=== PATIENT | male | born 1975 | race Two or more races ===

== ENCOUNTER 2020-09-15 17:18 | Inpatient (IN) | payer SELFPAY ==
--- NOTE | ~2020-09-15 | CT_ITS ---
EXAMINATION: CT ABDOMEN AND PELVIS WITH CONTRAST CLINICAL INFORMATION: Left lower quadrant pain COMPARISON: 05/21/2016 TECHNIQUE: Multidetector volumetric images were obtained from the superior aspect of the liver through the pubic symphysis following administration 85 mL of Omnipaque 350 intravenous contrast. Sagittal and coronal reformatted images were obtained on the technologist's workstation. Oral contrast: No This CT examination was performed using dose optimization techniques as appropriate, variously including the following: *Automated exposure control *Adjustment of mA and/or kV according to patient size (this includes techniques or standardized protocols for targeted exams where dose is matched to indication/reason for exam; i.e. extremities or head) *Use of iterative reconstruction technique DLP: 426 mGy-cm FINDINGS: LUNG BASES: The visualized lung bases are unremarkable. LIVER, GALLBLADDER, AND BILIARY TREE: The liver is normal in size, shape, and attenuation. No suspicious focal hepatic lesion or biliary ductal dilatation is present. Small cyst junctional left and right lobe similar subcentimeter in size. The gallbladder is unremarkable with no evidence of radiopaque gallstones, gallbladder wall thickening, or obvious pericholecystic inflammatory changes. PANCREAS: Unremarkable. SPLEEN: Unremarkable. ADRENAL GLANDS: Unremarkable. KIDNEYS AND URETERS: Right kidney unremarkable. Left kidney notable for a segmental area of nonenhancement lower pole favoring an infarct. No hydronephrosis. BLADDER: Unremarkable. GASTROINTESTINAL TRACT: The small and large bowel are grossly normal. The distal colon is collapsed. Element of mild colitis question. Fatty halo sign noted. No small bowel pathology. No fluid collection. The appendix is unremarkable. ABDOMINAL WALL: No significant hernia is appreciated. LYMPH NODES: Normal. VASCULAR: Unremarkable. PELVIC VISCERA: Prostate gland is enlarged and heterogeneous. Correlate with digital rectal exam. OSSEOUS STRUCTURES: Unremarkable. CT/CT abdomen pelvis w con IMPRESSION: 1. Left renal cortical findings suspicious for a renal infarct. 2. Collapsed distal colon limiting assessment. Correlate clinically concerning possibility of minor colitis.
--- NOTE | ~2020-09-15 | US_ITS ---
EXAMINATION: US RETROPERITONEAL LIMITED (RENAL ONLY) ULTRASOUND RENAL DOPPLER CLINICAL INFORMATION: Renal infarction. COMPARISON: None TECHNIQUE: Routine mcgill-scale imaging of kidneys was performed in addition retroperitoneal Doppler of kidneys and abdominal aorta was obtained. FINDINGS: The exam is limited secondary to overlying bowel gas. RIGHT KIDNEY: 11.1 x 4.3 x 5.2 cm (SAG x AP x TRV). The kidney is normal in size, contour, and echogenicity. Renal cortical thickness is normal. No calculi or focal parenchymal lesions. No hydronephrosis. LEFT KIDNEY: 11.9 x 4.7 x 4.7 cm (SAG x AP x TRV). The kidney is normal in size, contour, and echogenicity. Renal cortical thickness is normal. No calculi or focal parenchymal lesions. No hydronephrosis. DOPPLER IMAGING: Right Kidney: The proximal renal artery velocity measures 113 cm/second, mid segment measuring 137 cm/second and distal segment measures 114 cm/second. Average resistive index is 0.72. The renal aortic ratio cannot be calculated due to elevated aortic velocity of 104 cm/second. Left Kidney: The proximal renal artery velocity measures 96.7 cm/second, mid segment measures 82.2 cm/second, distal segment measures 91.8 cm/second. The renal aortic ratio cannot be calculated. The average resistive index is 0.71. The renal veins are patent bilaterally. US/US renal doppler IMPRESSION: Normal renal ultrasound. On renal Doppler exam the velocities and resistive indexes are normal in both kidneys. There is no suggestion for renal artery stenosis.
--- NOTE | ~2020-09-15 | US_ITS ---
EXAMINATION: US RETROPERITONEAL LIMITED (RENAL ONLY) ULTRASOUND RENAL DOPPLER CLINICAL INFORMATION: Renal infarction. COMPARISON: None TECHNIQUE: Routine mcgill-scale imaging of kidneys was performed in addition retroperitoneal Doppler of kidneys and abdominal aorta was obtained. FINDINGS: The exam is limited secondary to overlying bowel gas. RIGHT KIDNEY: 11.1 x 4.3 x 5.2 cm (SAG x AP x TRV). The kidney is normal in size, contour, and echogenicity. Renal cortical thickness is normal. No calculi or focal parenchymal lesions. No hydronephrosis. LEFT KIDNEY: 11.9 x 4.7 x 4.7 cm (SAG x AP x TRV). The kidney is normal in size, contour, and echogenicity. Renal cortical thickness is normal. No calculi or focal parenchymal lesions. No hydronephrosis. DOPPLER IMAGING: Right Kidney: The proximal renal artery velocity measures 113 cm/second, mid segment measuring 137 cm/second and distal segment measures 114 cm/second. Average resistive index is 0.72. The renal aortic ratio cannot be calculated due to elevated aortic velocity of 104 cm/second. Left Kidney: The proximal renal artery velocity measures 96.7 cm/second, mid segment measures 82.2 cm/second, distal segment measures 91.8 cm/second. The renal aortic ratio cannot be calculated. The average resistive index is 0.71. The renal veins are patent bilaterally. US/US renal BI IMPRESSION: Normal renal ultrasound. On renal Doppler exam the velocities and resistive indexes are normal in both kidneys. There is no suggestion for renal artery stenosis.
[2020-09-15 17:59] VITALS: BP 132/75; PULSE 55; RESP 19; TEMP 37.1; O2SAT 98; BMI 23.3
--- NOTE | 2020-09-15 18:42 | ED_ITS ---
HPI - Abdominal Pain General Chief Complaint: Abdominal Pain Stated Complaint: abdominal pain Time Seen by Provider: 09/15/20 18:28 Source: patient Mode of arrival: ambulatory Limitations: no limitations History of Present Illness HPI narrative: Patient comes emergency room complaining of left lower quadrant pain. Patient states started around 23:00 last night. Patient states that he has had this pain once before but it self resolved. Patient was hoping that the pain would resolve and was awaiting coming to the hospital. However, over last few hours the pain has gradually been getting much worse. Denies nausea vomiting or diarrhea. States that he has no appetite. Denies fever or chills. Patient denies dysuria or hematuria, no history kidney stones or abdominal pathology Related Data Allergies Allergy/AdvReac Type Severity Reaction Status Date / Time No Known Allergies Allergy Verified 09/15/20 17:59 Review of Systems Review of Systems Constitutional : No Weight loss, No Fever, No Chills, No Night Sweats, No Fatigue, No Malaise ENT/Mouth : No Hearing loss, No Ear Pain, No Nasal Congestion, No Sinus Pain, No Hoarseness, No sore throat, No Rhinorrhea, No Swallowing Difficulty Eyes: No Eye Pain, No Swelling, No Redness, No Foreign Body, No Discharge, No Vision Changes Cardiovascular : No Chest Pain, No SOB, No Dyspnea on Exertion, No Orthopnea, No Edema, No Palpitations Respiratory : No Cough, No Sputum, No Wheezing, No Smoke Exposure, No Dyspnea Gastrointestinal : No Nausea, No Vomiting, No Diarrhea, No Constipation, complaining of periumbilical and left lower quadrant pain, no flank pain, No Hematochezia, No Melena Genitourinary : no irregular bleeding, No Dysuria, No Urinary Frequency, No Hematuria, No Urinary Incontinence, No Urgency, No Flank Pain, No Urinary Flow Changes, No Hesitancy Musculoskeletal : No joint pain, No Myalgias, No Joint Swelling Skin : No Skin Lesions, No rash Neuro : No Weakness, No Numbness, No Paresthesias, No Loss of Consciousness, No Dizziness, No Headache Psych : No Anxiety/Panic, No Depression, No SI/HI/AH/VH, No Social Issues, Heme/Lymph: No Bruising, No Bleeding,No Lymphadenopathy Endocrine : No Polyuria, No Polydipsia, No Temperature Intolerance Physical Exam Vital Signs: Vital Signs: Last Vital Signs Temp 98.5 F 07/20/21 21:04 Pulse 59 09/15/20 21:04 Resp 18 09/15/20 21:04 BP 113/61 09/15/20 21:04 Pulse Ox 97 09/15/20 21:04 Body Mass Index 23.3 Appearance: Alert. Oriented X3. No acute distress but does look uncomforta ble Eyes: Pupils equal, round and reactive to light. ENT: Pharynx normal. Neck: Normal inspection. Neck supple. No lymph nodes noted. No crepitus CVS: Normal heart rate and rhythm. Pulses normal. Normal S1 and S2 Respiratory: No respiratory distress. Breath sounds normal. No Wheezing. No rales Abdomen: Soft, tender to palpation over the left lower quadrant and periumbilical area , No rigidity. No distention. No rebound, no guarding. Skin: Skin warm and dry. Normal skin color. Normal skin turgor. Extremities: No lower extremity edema. No lower extremity edema. No Lacerations. No Rash Neuro: Oriented X 3. No motor deficit. No sensory deficit. Moving all extermities. No slurred speech. 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 Patient does not have history of atrial fibrillation, coagulopathy. I discussed the above-mentioned with the patient, patient willing to stay for further workup. I also discussed this with our hospitalist Dr. Ricketts, patient being admitted. Urinalysis pending MDM - Abdominal Pain Lab Data Result diagrams: 09/15/20 19:06 09/15/20 19:06 Labs: Lab Results 09/15/20 09/15/20 09/15/20 Range/Units 19:06 19:06 19:06 WBC 15.8 H (4.8-10.8) X10*3/uL RBC 4.72 (4.60-5.80) X10*6/uL Hgb 15.6 (14.0-18.0) g/dl Hct 43.1 (42-52) % MCV 91.3 (80-98) fL MCH 33.1 H (27.0-33.0) pg MCHC 36.2 H (31.0-36.0) g/dl RDW 11.4 (11.0-16.0) % Plt Count 216 (160-400) X10*3/uL MPV 11.1 (9.4-12.4) fL Immature Gran % (Auto) 0.4 (0.0-0.4) % Neut % (Auto) 84.3 H (45-73) % Lymph % (Auto) 10.3 L (20-40) % [place] % (Auto) 4.4 (2-11) % Eos % (Auto) 0.4 (0-4) % Baso % (Auto) 0.2 (0-2) % Lymph # (Auto) 1.6 (1.2-4.9) X10*3/uL [place] # (Auto) 0.7 (0.1-1.2) X10*3/uL Eos # (Auto) 0.1 (0.0-0.4) X10*3/uL Baso # (Auto) 0.0 (0.0-0.2) X10*3/uL Abs Immat Gran (auto) 0.07 H (0.00-0.03) X10*3/uL Absolute Neuts (auto) 13.3 H (2.0-8.3) X10*3/uL Absolute Nucleated RBC 0.000 (0.0-0.012) X10*3/uL Nucleated RBC % (auto) 0.0 (0.0-0.2) /100WBC Sodium 143 142 (135-145) mmol/L Potassium 3.9 3.9 (3.3-5.1) mmol/L Chloride 107 107 (96-108) mmol/L Carbon Dioxide 28 28 (22-29) mmol/L Anion Gap 12 11 L (12-20) BUN 7 L 7 L (9-16) mg/dL Creatinine 0.97 0.94 (0.5-1.4) mg/dL Estim Creat Clear Calc 98.1 101.3 Estimated GFR > 60 > 60 Random Glucose 96 97 (60-115) mg/dL Calcium 9.7 9.5 (8.4-10.2) mg/dL Total Bilirubin 1.9 H 1.9 H (0.0-1.0) mg/dL Direct Bilirubin 0.6 H (0.0-0.5) mg/dL AST 20 21 (5-37) U/L ALT 29 27 (0-40) U/L Alkaline Phosphatase 77 75 (39-117) U/L Total Protein 7.6 7.5 (6.5-8.0) g/dL Albumin 4.4 4.4 (3.5-5.0) g/dL Lipase 8 (8-78) U/L Imaging Data CT scan - abdomen: Radiologist's impression: FINDINGS: LUNG BASES: The visualized lung bases are unremarkable. LIVER, GALLBLADDER, AND BILIARY TREE: The liver is normal in size, shape, and attenuation. No suspicious focal hepatic lesion or biliary ductal dilatation is present. Small cyst junctional left and right lobe similar subcentimeter in size. The gallbladder is unremarkable with no evidence of radiopaque gallstones, gallbladder wall thickening, or obvious pericholecystic inflammatory changes. PANCREAS: Unremarkable. SPLEEN: Unremarkable. ADRENAL GLANDS: Unremarkable. KIDNEYS AND URETERS: Right kidney unremarkable. Left kidney notable for a segmental area of nonenhancement lower pole favoring an infarct. No hydronephrosis. BLADDER: Unremarkable. GASTROINTESTINAL TRACT: The small and large bowel are grossly normal. The distal colon is collapsed. Element of mild colitis question. Fatty halo sign noted. No small bowel pathology. No fluid collection. The appendix is unremarkable. ABDOMINAL WALL: No significant hernia is appreciated. LYMPH NODES: Normal. VASCULAR: Unremarkable. PELVIC VISCERA: Prostate gland is enlarged and heterogeneous. Correlate with digital rectal exam. OSSEOUS STRUCTURES: Unremarkable. CT/CT abdomen pelvis w con IMPRESSION: 1. Left renal cortical findings suspicious for a renal infarct. 2. Collapsed distal colon limiting assessment. Correlate clinically concerning possibility of minor colitis. ECG Data Attestation: I personally reviewed and interpreted this ECG as follows: (Sinus bradycardia, heart rate 52, no ST segment depression or elevation, no T-wave inversion) Discharge Plan Discharge Clinical Impression: Renal infarct Patient Disposition: Admitted As Inpatient [facility] Social History Social History Advance Directives: No Advance Directives Information Provided: Yes
[2020-09-15 19:13] LABS: Basophils Percent Auto 0.2 % (0-2); Eosinophils Absolute Auto 0.1 X10*3/uL (0.0-0.4); Eosinophils Percent Auto 0.4 % (0-4); Hematocrit 43.1 % (42-52); Hemoglobin 15.6 g/dl (14.0-18.0); Imm Gran Abs Auto 0.07 X10*3/uL (0.00-0.03); Imm Gran Pct Auto 0.4 % (0.0-0.4); Lymphocytes Absolute Auto 1.6 X10*3/uL (1.2-4.9); Lymphocytes Percent Auto 10.3 % (20-40); MANUAL DIFF FLAG NO; Mean Corpuscular HGB Conc 36.2 g/dl (31.0-36.0); Mean Corpuscular Hemoglobin 33.1 pg (27.0-33.0); Mean Corpuscular Volume 91.3 fL (80-98); Mean Platelet Volume 11.1 fL (9.4-12.4); Monocytes Absolute Auto 0.7 X10*3/uL (0.1-1.2); Monocytes Percent Auto 4.4 % (2-11); Neutrophils Absolute Auto 13.3 X10*3/uL (2.0-8.3); Neutrophils Percent Auto 84.3 % (45-73); Platelet Count 216 X10*3/uL (160-400); Red Blood Count 4.72 X10*6/uL (4.60-5.80); Red Cell Distribution Width 11.4 % (11.0-16.0); White Blood Count 15.8 X10*3/uL (4.8-10.8)
[2020-09-15] MEDS: ondansetron HCL 4 MG/2 ML VIAL IVPUSH (19:14)
[2020-09-15] MEDS: 0.9 % Sodium Chloride 1,000 ML 999 ML IVCONT (19:14)
[2020-09-15] MEDS: Ketorolac Tromethamine 30 MG/ML VIAL IVPUSH (19:14)
[2020-09-15 19:40] LABS: Alanine Aminotransferase 27 U/L (0-40); Albumin Level 4.4 g/dL (3.5-5.0); Alkaline Phosphatase 75 U/L (39-117); Anion Gap 11 (12-20); Aspartate Amino Transferase 21 U/L (5-37); Bilirubin Direct 0.6 mg/dL (0.0-0.5); Bilirubin Total 1.9 mg/dL (0.0-1.0); Blood Urea Nitrogen 7 mg/dL (9-16); Calcium 9.5 mg/dL (8.4-10.2); Carbon Dioxide 28 mmol/L (22-29); Chloride 107 mmol/L (96-108); Creatinine Clr Calc Pharmacy 101.3; Estimated Glomerular Filt Rate > 60; Glucose Random 97 mg/dL (60-115); Lipase 8 U/L (8-78); Potassium 3.9 mmol/L (3.3-5.1); Sodium 142 mmol/L (135-145); Total Protein 7.5 g/dL (6.5-8.0)
[2020-09-15 19:41] LABS: Alanine Aminotransferase 29 U/L (0-40); Albumin Level 4.4 g/dL (3.5-5.0); Alkaline Phosphatase 77 U/L (39-117); Anion Gap 12 (12-20); Aspartate Amino Transferase 20 U/L (5-37); Bilirubin Total 1.9 mg/dL (0.0-1.0); Blood Urea Nitrogen 7 mg/dL (9-16); Calcium 9.7 mg/dL (8.4-10.2); Carbon Dioxide 28 mmol/L (22-29); Chloride 107 mmol/L (96-108); Creatinine Clr Calc Pharmacy 98.1; Estimated Glomerular Filt Rate > 60; Glucose Random 96 mg/dL (60-115); Potassium 3.9 mmol/L (3.3-5.1); Sodium 143 mmol/L (135-145); Total Protein 7.6 g/dL (6.5-8.0)
[2020-09-15] MEDS: iohexoL 350 MG/ML 100 ML INFUS..BTL IV (20:12)
[2020-09-15 21:04] VITALS: BP 113/61; PULSE 59; RESP 18; TEMP 36.9; O2SAT 97
--- NOTE | 2020-09-15 21:15 | ECG_ITS ---
Test Reason : ABDOMINAL PAIN Blood Pressure : / mmHG Vent. Rate : 052 BPM Atrial Rate : 052 BPM P-R Int : 124 ms QRS Dur : 070 ms QT Int : 426 ms P-R-T Axes : -26 -01 030 degrees QTc Int : 396 ms Sinus bradycardia with sinus arrhythmia Otherwise normal ECG No previous ECGs available Referred By: Elicia Gillette Electronically Signed By:ERNESTO LONG MD
--- NOTE | 2020-09-15 21:54 | P.HPHOSP_ITS ---
History of Present Illness Date of Service: 09/15/20 Chief Complaint: Left sided Abd pain 44-year-old male with no significant past medical history presented to the hospital with a chief complaint of left-sided abdominal pain. Patient reported that pain started last night, but has not been improving and decided to come to the ER for further evaluation. Reported sharp in nature. In the left lower quadrant; no associated nausea vomiting diarrhea. Denies any urinary symptoms. Denies any fever chills cough. Patient denies any recent drug use or tobacco use. Denies any alcohol use. Denies taking eyur-rmt-biknpto pain medications. Denies any family history of clotting disorders; Denies any hematuria Review of all other systems is negative except mentioned above ER course: Per ER team patient noted her left lower quadrant abdominal tenderness care Blanca: No guarding no rigidity; CT abdomen showed left-sided early 9 part; urinalysis pending. EKG pending. Admitted for further management. [facility] Family history: reviewed and not pertinent (Reports mother had history of aneurysm) Social History Household Members: Spouse and Children Household Members Other:: 4 Housing: Apartment Do you presently have visiting nurse or other home services: No Patient Tobacco Use Status: Former Tobacco user Quit Date: years ago Tobacco use type: Cigarette Patient Interested in Nicotine Replacement: No Use of substances other than those prescribed or required for medical reasons: No Currently Displaying Signs/Symptoms of Drug Intoxication Withdrawal: No Have you been hit, kicked, punched, or otherwise hurt by someone within the past year? If so, by whom?: No Advance Directives: No Advance Directives Information Provided: Yes Do you have thoughts of harming others: None Do you have a plan to hurt others: No Plan Recently lost weight without trying: No Eating poorly because of decreased appetite: No Nutrition Risks: No Nutritional Risk Poor oral hygiene: No service: No Current occupational status: employed Meds Allergies Allergy/AdvReac Type Severity Reaction Status Date / Time No Known Allergies Allergy Verified 09/15/20 17:59 Active Medications: Current Medications Generic Name Dose Route Start Last Admin Trade Name Freq PRN Reason Stop Dose Admin Acetaminophen 650 mg 09/15/20 21:52 Acetaminophen 325 Mg Tablet PO Q6H PRN Pain, Mild (Pain Scale 1-3) Enoxaparin Sodium 40 mg 07/20/21 22:00 Enoxaparin Sodium 40 Mg/0.4 Ml Syringe SUBCUT Q24H ESTEFANIA Dextrose/Sodium Chloride 1,000 mls @ 100 mls/hr 09/15/20 22:00 D51/2ns IVCONT .Q10H ESTEFANIA Magnesium Hydroxide 30 ml 09/15/20 21:52 Milk Of Magnesia 30 Ml Oral.Susp PO DAILY PRN Constipation Melatonin 6 mg 09/15/20 21:52 Melatonin 3 Mg Tablet PO BEDTIME PRN Insomnia Sodium Chloride 3 ml 09/16/20 00:00 0.9 % Sodium Chloride Flush 3 Ml Syringe IVFLUSH QSHIFT ESTEFANIA Physical Exam Vital Signs and Narrative: Vital Signs: Last Vital Signs Temp 98.5 F 09/15/20 21:04 Pulse 59 09/15/20 21:04 Resp 18 09/15/20 21:04 BP 113/61 09/15/20 21:04 Pulse Ox 97 09/15/20 21:04 Body Mass Index 23.3 Gen: Appears be in no acute distress HEENT: NCAT, Moist mucosa. Pulmonary: Vesicular breath sounds, fair air entry CVS: Normal S1-S2 Abdomen: BS+, Soft, tender in the left lower quadrant; no guarding or rigidity. Extremities: Warm well perfused Neuro: Alert and awake. Results Labs CBC and Chem 7: 09/16/20 09:31 09/16/20 09:31 Labs: Laboratory Results - last 24 hr 09/15/20 09/15/20 09/15/20 19:06 19:06 19:06 MCV 91.3 MCH 33.1 H MCHC 36.2 H RDW 11.4 Plt Count 216 MPV 11.1 Immature Gran % (Auto) 0.4 Neut % (Auto) 84.3 H Lymph % (Auto) 10.3 L [place] % (Auto) 4.4 Eos % (Auto) 0.4 Baso % (Auto) 0.2 Lymph # (Auto) 1.6 [place] # (Auto) 0.7 Eos # (Auto) 0.1 Baso # (Auto) 0.0 Abs Immat Gran (auto) 0.07 H Absolute Neuts (auto) 13.3 H Absolute Nucleated RBC 0.000 Nucleated RBC % (auto) 0.0 Anion Gap 12 11 L Estim Creat Clear Calc 98.1 101.3 Estimated GFR > 60 > 60 Random Glucose 96 97 Calcium 9.7 9.5 Total Bilirubin 1.9 H 1.9 H Direct Bilirubin 0.6 H AST 20 21 ALT 29 27 Alkaline Phosphatase 77 75 Total Protein 7.6 7.5 Albumin 4.4 4.4 Lipase 8 Imaging Radiologist's Impressions: Impressions Abdomen/Pelvis CT 09/15/20 18:34 IMPRESSION: 1. Left renal cortical findings suspicious for a renal infarct. 2. Collapsed distal colon limiting assessment. Correlate clinically concerning possibility of minor colitis. Assessment and Plan (1) Renal infarct: Status: Acute 44-year-old male with no significant past medical history presented to the hospital with a chief complaint of left lower quadrant abdominal pain. CT scan showed possible mild colitis and left renal infarct. Admitted for further management. Mild colitis: Patient is afebrile, no leukocytosis, denies any diarrhea. Supportive care. Left renal infarct: Patient denies any prior history of blood clots. Denies any family history of blood clots. Denies any palpitations. EKG is sinus Adan with sinus arrhythmia Will give the patient on telemetry Will obtain echocardiogram Will await further recommendations from Nephrology before keeping the patient on anticoagulation. Urinalysis pending DVT prophylaxis: Lovenox Code status: Full code Quality Stroke Does the patient have a stroke diagnosis?: No VTE Prior VTE?: No VTE Risk Level:: Medical - moderate - high VTE Device Contraindication: N/A - Device Ordered VTE Drug Contraindication: N/A - Med Ordered
[2020-09-15 22:45] LABS: D Dimer < 200 NG/ML
[2020-09-15] MEDS: Dextrose 5 % and 0.45 % NaCl 1,000 ML 100 ML IVCONT (23:32)
[2020-09-15] MEDS: Enoxaparin Sodium 40 MG/0.4 ML SYRINGE SUBCUT (23:32)
[2020-09-15] MEDS: 0.9 % Sodium Chloride Flush 3 ML SYRINGE IVFLUSH (23:50)
[2020-09-16] MEDS: HYDROmorphone HCl 0.5 MG/0.5 ML SYRINGE IVPUSH ×3 (03:50→15:45)
[2020-09-16 04:13] LABS: COVID-19 Test Negative (Negative)
--- NOTE | 2020-09-16 08:30 | CA_ITS ---
Transthoracic Echocardiogram Patient (Last, First, Middle): Gregorio Shipley, Gender: Male Date of : 1975 Age: 44 Procedure Date: 09/16/2020 Procedure Type: Transthoracic E[place]ocardiogram [place] [facility] [place]: 175.26 cm Weight: 71.67 kg BSA: 1.87 m2 Heart Rate: bpm BP: 131 / 61 mmHg Flash Ranging Crewmember: YR/CP Referring MD: Bladimir Ricketts MD Budget Assistant: Noé Levin MD Symptoms: renal infarct Study Quality: Technically Difficult/Contrast ECG Rhythm: Sinus bradycardia Conclusions: - 1. Technically limited study despite use of contrast agent 2. Normal LV systolic function with impaired relaxation filling pattern 3. Limited visualization of cardiac valves with normal cardiac valvular Doppler 4. Normal RV systolic pressure 5. No gross pericardial effusion Findings Procedure Information Contrast agent, definity, is being given per protocol without apparent complications. Left Ventricle Normal left ventricular size, thickness, and systolic function. The visually estimated ejection fraction is between 60-65%. Spectral Doppler is indicative of an impaired relaxation filling pattern. Right Ventricle The right ventricle was not well visualized. Atria The left atrium was not well visualized. Interatrial shunt cannot be excluded. The right atrium was not well visualized. Aortic Valve The aortic valve was not well visualized. There is no aortic valve stenosis. There is no aortic valve regurgitation. Mitral Valve The mitral valve was not well visualized. There is trace mitral valve regurgitation. There is no mitral valve stenosis. Pulmonic Valve The pulmonic valve was not well visualized. Tricuspid Valve The tricuspid valve was not well visualized. There is trace tricuspid valve regurgitation. The right ventricular systolic pressure is normal. The right ventricular systolic pressure is 17 mmHg. Normal right atrial pressure. There is no evidence of pulmonary hypertension. Great Vessels The aorta was not well visualized. The pulmonary artery was not well visualized. Venous The inferior vena cava is normal in size. Pericardium/Pleural There is no evidence of pericardial effusion. Prior Study Comparison No prior study available for comparison. Recommendations, Care & Conclusions Consider a DEISI if clinically appropriate. Recommend contrast study to evaluate intracardiac shunting. Measurements 2D Linear Measurements IVSd: 0.92 0.6-0.9/0.6-1.0 cm LVIDd: 4.48 3.9-5.3/4.2-5.9 cm LVIDd Index: 2.40 2.4-3.2/2.2-3.1 cm/m2 LVIDs: 3.12 2.0-3.6 cm LVPWd: 0.94 0.7-1.1 cm Ao Root: 3.50 2.1-3.5 cm LA Diam: 3.20 2.7-3.8/3.0-4.0 cm LAIDs Index: 1.71 1.5-2.3 cm/m2 LV Mass: 171.40 67-162/88-224 g LV Mass Index: 91.66 43-95/49-115 g/m2 LVOT Diam: 2.00 3.0+(-)1.3 cm 2D Systolic Function EF 4C: 60.30 >55% EF 2C: 59.30 >55% EF BiP: 59.80 >55% Mitral Valve MV Pk E: 0.69 MV PK A: 0.57 MV Decel Time: 166.00 E/A: 1.20 E'Lateral: 10.60 E'Medial: 10.40 E/E' Med: 6.60 E/E' Lat: 6.50 PHT: 49.00 MVA PHT: 4.49 Decel [place]: 4.16 Aortic Valve AoV Pk Eze: 1.02 AoV Mn Eze: 0.69 AoV VTI: 0.23 AoV Pk Grad: 4.00 Aov Mn Grad: 2.00 GEN Cont.VTI: 2.62 LVOT LVOT Pk Eze: 0.90 LVOT Mn Eze: 0.49 LVOT VTI: 0.19 LVOT Pk Grad: 3.00 LVOT Mn Grad: 1.00 LVOT Diam: 2.00 LVOT Area: 3.14 Diastolic Function MV Pk E: 0.69 MV Pk A: 0.57 E/A: 1.20 E'Medial: 10.40 E/E' Med: 6.60 E' Laterial: 10.60 E/E' Lat: 6.50 Tricuspid Valve TR Pk Eze: 1.89 TR Pk Grad: 14.00 RA Press: 3.00 RVSP: 17.00 Great Vessels Aorta Ao Root-2D: 3.50 2.0-3.7 cm Ao Asc: 3.00 2.1-3.4 cm Updated in Other Vendor System with Status of Final Noé Levin MD electronically signed on 09/16/2020 4:19:10 PM with status of Final
[2020-09-16] MEDS: 0.9 % Sodium Chloride Flush 3 ML SYRINGE IVFLUSH ×2 (08:34→20:32)
[2020-09-16 08:35] VITALS: BP 111/61; PULSE 50; RESP 18; TEMP 36.7; O2SAT 99
[2020-09-16] MEDS: Dextrose 5 % and 0.45 % NaCl 1,000 ML 100 ML IVCONT (08:50)
[2020-09-16 09:02] VITALS: BMI 23.8
[2020-09-16 09:58] LABS: MANUAL DIFF FLAG NO
[2020-09-16 10:03] LABS: Basophils Percent Auto 0.3 % (0-2); Eosinophils Absolute Auto 0.2 X10*3/uL (0.0-0.4); Eosinophils Percent Auto 1.6 % (0-4); Hematocrit 37.9 % (42-52); Hemoglobin 13.4 g/dl (14.0-18.0); Imm Gran Abs Auto 0.04 X10*3/uL (0.00-0.03); Imm Gran Pct Auto 0.4 % (0.0-0.4); Lymphocytes Absolute Auto 2.7 X10*3/uL (1.2-4.9); Mean Corpuscular HGB Conc 35.4 g/dl (31.0-36.0); Mean Corpuscular Hemoglobin 32.8 pg (27.0-33.0); Mean Corpuscular Volume 92.7 fL (80-98); Mean Platelet Volume 11.5 fL (9.4-12.4); Monocytes Absolute Auto 0.8 X10*3/uL (0.1-1.2); Neutrophils Absolute Auto 7.2 X10*3/uL (2.0-8.3); Neutrophils Percent Auto 65.7 % (45-73); Platelet Count 186 X10*3/uL (160-400); Red Blood Count 4.09 X10*6/uL (4.60-5.80); Red Cell Distribution Width 11.6 % (11.0-16.0); White Blood Count 10.9 X10*3/uL (4.8-10.8)
[2020-09-16 10:30] LABS: Anion Gap 10 (12-20); Blood Urea Nitrogen 7 mg/dL (9-16); Calcium 8.7 mg/dL (8.4-10.2); Carbon Dioxide 27 mmol/L (22-29); Chloride 107 mmol/L (96-108); Creatinine Clr Calc Pharmacy 109.4; Estimated Glomerular Filt Rate > 60; Glucose Random 111 mg/dL (60-115); Magnesium 1.7 mg/dL (1.6-2.6); Potassium 3.7 mmol/L (3.3-5.1); Sodium 140 mmol/L (135-145)
[2020-09-16 11:52] VITALS: BP 104/57; PULSE 54; RESP 18; TEMP 37; O2SAT 97
[2020-09-16 12:23] LABS: Glucose Urine UA NEG (NEG); Leukocyte Esterase Urine NEG (NEG); Nitrite Urine NEG (NEG); PH 6.5 (5.0-8.0); Specific Gravity - Urine 1.015 (1.005-1.025); Urine Blood NEG (NEG); Urine Ketones NEG (NEG); Urine Protein TRACE MG/DL (NEG-TRACE)
[2020-09-16 12:25] LABS: Appearance Urine CLEAR; Color Urine YELLOW
--- NOTE | 2020-09-16 12:40 | P.PNIM_ITS ---
Subjective Subjective Date of Service: 09/16/20 Interval History: Patient complaining of left lower quadrant abdominal pain, denies nausea vomiting, no diarrhea, no fevers, no chills, no worsening of pain overnight, tele monitor showed no arrhythmia. ROS PLATE FORMER no headache, no dizziness CVS no chest pain, no palpitation GI no nausea, no vomiting, mild left lower quadrant pain no urinary burning, no frequency, no hematuria Physical Exam Vital Signs: Vital Signs: Last Vital Signs Temp 98.6 F 09/16/20 11:52 Pulse 54 09/16/20 11:52 Resp 18 09/16/20 11:52 BP 104/57 L 09/16/20 11:52 Pulse Ox 97 09/16/20 11:52 Body Mass Index 23.8 General resting comfortably in no acute distress. Neck supple no JVD. CVS regular rate rhythm, Respiratory lungs clear to auscultation, no respiratory distress, no wheeze, no rhonchi. Gastrointestinal abdomen soft, mild LLQ tenderness to palpation,bowel sounds audible, no rebound, no guarding , no rigidity. Back no CVA tenderness Extremities no edema. Neuro nonfocal ,speech clear. Skin no rash Objective Data Current Medications Generic Name Dose Route Start Last Admin Trade Name Freq PRN Reason Stop Dose Admin Acetaminophen 650 mg 09/15/20 21:52 Acetaminophen 325 Mg Tablet PO Q6H PRN Pain, Mild (Pain Scale 1-3) Enoxaparin Sodium 40 mg 09/15/20 22:00 09/15/20 23:32 Enoxaparin Sodium 40 Mg/0.4 Ml Syringe SUBCUT 40 mg Q24H ESTEFANIA Administration Hydromorphone HCl 0.5 mg 09/16/20 03:33 09/16/20 08:50 Hydromorphone Hcl 0.5 Mg/0.5 Ml Syringe IVPUSH 0.5 mg Q4H PRN Administration Breakthrough Pain Dextrose/Sodium Chloride 1,000 mls @ 100 mls/hr 09/15/20 22:00 09/16/20 08:50 D51/2ns IVCONT 100 mls/hr .Q10H ESTEFANIA Administration Magnesium Hydroxide 30 ml 09/15/20 21:52 Milk Of Magnesia 30 Ml Oral.Susp PO DAILY PRN Constipation Melatonin 6 mg 09/15/20 21:52 Melatonin 3 Mg Tablet PO BEDTIME PRN Insomnia Sodium Chloride 3 ml 09/16/20 00:00 09/16/20 08:34 0.9 % Sodium Chloride Flush 3 Ml Syringe IVFLUSH 3 ml QSHIFT [facility] Administration Labs CBC & Chem 7: 09/16/20 09:31 09/16/20 09:31 Labs: Laboratory Results - last 24 hr 09/15/20 09/15/20 09/15/20 19:06 19:06 19:06 WBC 15.8 H RBC 4.72 Hgb 15.6 Hct 43.1 MCV 91.3 MCH 33.1 H MCHC 36.2 H RDW 11.4 Plt Count 216 MPV 11.1 Immature Gran % (Auto) 0.4 Neut % (Auto) 84.3 H Lymph % (Auto) 10.3 L [place] % (Auto) 4.4 Eos % (Auto) 0.4 Baso % (Auto) 0.2 Lymph # (Auto) 1.6 [place] # (Auto) 0.7 Eos # (Auto) 0.1 Baso # (Auto) 0.0 Abs Immat Gran (auto) 0.07 H Absolute Neuts (auto) 13.3 H Absolute Nucleated RBC 0.000 Nucleated RBC % (auto) 0.0 D-Dimer Sodium 143 142 Potassium 3.9 3.9 Chloride 107 107 Carbon Dioxide 28 28 Anion Gap 12 11 L BUN 7 L 7 L Creatinine 0.97 0.94 Estim Creat Clear Calc 98.1 101.3 Estimated GFR > 60 > 60 Random Glucose 96 97 Calcium 9.7 9.5 Magnesium Total Bilirubin 1.9 H 1.9 H Direct Bilirubin 0.6 H AST 20 21 ALT 29 27 Alkaline Phosphatase 77 75 Total Protein 7.6 7.5 Albumin 4.4 4.4 Lipase 8 Urine Color Urine Appearance Urine pH Ur Specific [place] Urine Protein Urine Glucose (UA) Urine Ketones Urine Blood Urine Nitrite Ur Leukocyte Esterase COVID-19 (DANITZA) COVID-19 Clin Com 09/15/20 09/16/20 09/16/20 22:23 03:53 09:31 WBC 10.9 H RBC 4.09 L Hgb 13.4 L Hct 37.9 L MCV 92.7 MCH 32.8 MCHC 35.4 RDW 11.6 Plt Count 186 MPV 11.5 Immature Gran % (Auto) 0.4 Neut % (Auto) 65.7 Lymph % (Auto) 25.0 [place] % (Auto) 7.0 Eos % (Auto) 1.6 Baso % (Auto) 0.3 Lymph # (Auto) 2.7 [place] # (Auto) 0.8 Eos # (Auto) 0.2 Baso # (Auto) 0.0 Abs Immat Gran (auto) 0.04 H Absolute Neuts (auto) 7.2 Absolute Nucleated RBC 0.000 Nucleated RBC % (auto) 0.0 D-Dimer < 200 Sodium Potassium Chloride Carbon Dioxide Anion Gap BUN Creatinine Estim Creat Clear Calc Estimated GFR Random Glucose Calcium Magnesium Total Bilirubin Direct Bilirubin AST ALT Alkaline Phosphatase Total Protein Albumin Lipase Urine Color Urine Appearance Urine pH Ur Specific [place] Urine Protein Urine Glucose (UA) Urine Ketones Urine Blood Urine Nitrite Ur Leukocyte Esterase COVID-19 (DANITZA) Negative COVID-19 [employer] Com See Note 09/16/20 09/16/20 09/16/20 09:31 09:31 Unknown WBC RBC Hgb Hct MCV MCH MCHC RDW Plt Count MPV Immature Gran % (Auto) Neut % (Auto) Lymph % (Auto) [place] % (Auto) Eos % (Auto) Baso % (Auto) Lymph # (Auto) [place] # (Auto) Eos # (Auto) Baso # (Auto) Abs Immat Gran (auto) Absolute Neuts (auto) Absolute Nucleated RBC Nucleated RBC % (auto) D-Dimer Sodium 140 Potassium 3.7 Chloride 107 Carbon Dioxide 27 Anion Gap 10 L BUN 7 L Creatinine 0.87 Estim Creat Clear Calc 109.4 Estimated GFR > 60 Random Glucose 111 Calcium 8.7 D Magnesium 1.7 Total Bilirubin Direct Bilirubin AST ALT Alkaline Phosphatase Total Protein Albumin Lipase Urine Color YELLOW Urine Appearance CLEAR Urine pH 6.5 Ur Specific [place] 1.015 Urine Protein TRACE Urine Glucose (UA) NEG Urine Ketones NEG Urine Blood NEG Urine Nitrite NEG Ur Leukocyte Esterase NEG COVID-19 (DANITZA) COVID-19 Clin Com Quality Stroke Does the patient have a stroke diagnosis?: No VTE Prior VTE?: No VTE Risk Level:: Medical - moderate - high VTE Device Contraindication: N/A - Device Ordered VTE Drug Contraindication: N/A - Med Ordered Assessment and Plan (1) Renal infarct: Status: Acute (2) Leukocytosis: Status: Acute Assessment and Plan: 44-year-old male with no significant past medical history presented to the hospital with a chief complaint of left lower quadrant abdominal pain. CT scan showed possible mild colitis and left renal infarct. Admitted for further management. Left lower quadrant abdominal pain: Persistent mild left lower quadrant pain but improved, no nausea, no vomiting, no diarrhea, no fever, no chills , CT abdomen showed Mild colitis, patient tolerating diet WBC trending down, hold antibiotics continue Supportive care. Left renal infarct: no fever chills, no palpitations,no hx of atrial fib Patient denies any prior history of blood clots. Denies any family history of blood clots, UA showed no RBC no bacteria, EKG sinus Adan with sinus arrhythmia, D-dimer less than 200 no atrial fib on telemonitor,follow echocardiogram Spoke with Dr. Lamar , he recommend to check urine microscopic exam, and recommend vascular surgery consult , he feels less likely a renal infarction and more likely GI symptoms Will follow CBC DVT prophylaxis: Lovenox Code status: Full code
[2020-09-16] MEDS: Lactated Ringers 1,000 ML 100 ML IVCONT ×2 (13:32→23:15)
--- NOTE | 2020-09-16 15:14 | MHC.CM.PN ---
Male 44 DX Renal Infact. He is independent all functional mobility. Lives w family DP home no services family transport. CM will follow.
[2020-09-16 15:25] VITALS: BP 113/69; PULSE 50; RESP 20; TEMP 37.1; O2SAT 97
--- NOTE | 2020-09-16 16:28 | P.EN_ITS ---
Event Note Date of Service: 09/16/20 Event Note: CT scan reviewed. Agree with ordering US - await results. Full co nsult to follow
[2020-09-16] MEDS: Acetaminophen 325 MG TABLET 650 MG PO (17:13)
[2020-09-16 19:06] VITALS: BP 116/56; PULSE 52; RESP 20; TEMP 36.8; O2SAT 96
[2020-09-16] MEDS: Enoxaparin Sodium 40 MG/0.4 ML SYRINGE SUBCUT (20:31)
[2020-09-16 23:52] VITALS: BP 128/72; PULSE 54; RESP 18; TEMP 36.9; O2SAT 96
[2020-09-17 03:54] VITALS: BP 121/62; PULSE 50; RESP 18; TEMP 36.8; O2SAT 95
[2020-09-17 06:58] LABS: Hematocrit 36.9 % (42-52); Hemoglobin 13.1 g/dl (14.0-18.0); Mean Corpuscular HGB Conc 35.5 g/dl (31.0-36.0); Mean Corpuscular Hemoglobin 32.8 pg (27.0-33.0); Mean Corpuscular Volume 92.5 fL (80-98); Mean Platelet Volume 12.5 fL (9.4-12.4); Platelet Count 185 X10*3/uL (160-400); Red Blood Count 3.99 X10*6/uL (4.60-5.80); Red Cell Distribution Width 11.4 % (11.0-16.0); White Blood Count 10.8 X10*3/uL (4.8-10.8)
[2020-09-17 07:19] LABS: Anion Gap 11 (12-20); Blood Urea Nitrogen 7 mg/dL (9-16); Calcium 8.4 mg/dL (8.4-10.2); Carbon Dioxide 27 mmol/L (22-29); Chloride 109 mmol/L (96-108); Creatinine Clr Calc Pharmacy 110.7; Estimated Glomerular Filt Rate > 60; Glucose Random 82 mg/dL (60-115); Potassium 3.7 mmol/L (3.3-5.1); Sodium 143 mmol/L (135-145)
[2020-09-17 07:49] VITALS: BP 133/76; PULSE 52; RESP 20; TEMP 36.9; O2SAT 96
[2020-09-17] MEDS: Lactated Ringers 1,000 ML 100 ML IVCONT (07:49)
[2020-09-17] MEDS: 0.9 % Sodium Chloride Flush 3 ML SYRINGE IVFLUSH (07:50)
--- NOTE | 2020-09-17 09:17 | P.PNIM_ITS ---
Subjective Subjective Date of Service: 09/17/20 Physical Exam Vital Signs: Vital Signs: Last Vital Signs Temp 98.5 F 09/17/20 07:49 Pulse 52 09/17/20 07:49 Resp 20 09/17/20 07:49 BP 133/76 09/17/20 07:49 Pulse Ox 96 09/17/20 07:49 Body Mass Index 23.8 Objective Data Current Medications Generic Name Dose Route Start Last Admin Trade Name Freq PRN Reason Stop Dose Admin Acetaminophen 650 mg 09/15/20 21:52 09/16/20 17:13 Acetaminophen 325 Mg Tablet PO 650 mg Q6H PRN Administration Pain, Mild (Pain Scale 1-3) Enoxaparin Sodium 40 mg 09/15/20 22:00 09/16/20 20:31 Enoxaparin Sodium 40 Mg/0.4 Ml Syringe SUBCUT 40 mg Q24H ESTEFANIA Administration Hydromorphone HCl 0.5 mg 09/16/20 03:33 09/16/20 15:45 Hydromorphone Hcl 0.5 Mg/0.5 Ml Syringe IVPUSH 0.5 mg Q4H PRN Administration Breakthrough Pain Lactated Ringer's 1,000 mls @ 100 mls/hr 09/16/20 13:00 09/17/20 07:49 Lr IVCONT 100 mls/hr .Q10H ESTEFANIA Administration Magnesium Hydroxide 30 ml 09/15/20 21:52 Milk Of Magnesia 30 Ml Oral.Susp PO DAILY PRN Constipation Melatonin 6 mg 09/15/20 21:52 Melatonin 3 Mg Tablet PO BEDTIME PRN Insomnia Sodium Chloride 3 ml 09/16/20 00:00 09/17/20 07:50 0.9 % Sodium Chloride Flush 3 Ml Syringe IVFLUSH 3 ml QSHIFT ESTEFANIA Administration Labs CBC & Chem 7: 09/17/20 05:24 09/17/20 05:24 Labs: Laboratory Results - last 24 hr 09/16/20 09/16/20 09/16/20 09:31 09:31 09:31 WBC 10.9 H RBC 4.09 L Hgb 13.4 L Hct 37.9 L MCV 92.7 MCH 32.8 MCHC 35.4 RDW 11.6 Plt Count 186 MPV 11.5 Immature Gran % (Auto) 0.4 Neut % (Auto) 65.7 Lymph % (Auto) 25.0 [place] % (Auto) 7.0 Eos % (Auto) 1.6 Baso % (Auto) 0.3 Lymph # (Auto) 2.7 [place] # (Auto) 0.8 Eos # (Auto) 0.2 Baso # (Auto) 0.0 Abs Immat Gran (auto) 0.04 H Absolute Neuts (auto) 7.2 Absolute Nucleated RBC 0.000 Nucleated RBC % (auto) 0.0 Sodium 140 Potassium 3.7 Chloride 107 Carbon Dioxide 27 Anion Gap 10 L BUN 7 L Creatinine 0.87 Estim Creat Clear Calc 109.4 Estimated GFR > 60 Random Glucose 111 Calcium 8.7 D Magnesium 1.7 Urine Color Urine Appearance Urine pH Ur Specific [place] Urine Protein Urine Glucose (UA) Urine Ketones Urine Blood Urine Nitrite Ur Leukocyte Esterase 09/16/20 09/17/20 09/17/20 Unknown 05:24 05:24 WBC 10.8 RBC 3.99 L Hgb 13.1 L Hct 36.9 L MCV 92.5 MCH 32.8 MCHC 35.5 RDW 11.4 Plt Count 185 MPV 12.5 H Immature Gran % (Auto) Neut % (Auto) Lymph % (Auto) [place] % (Auto) Eos % (Auto) Baso % (Auto) Lymph # (Auto) [place] # (Auto) Eos # (Auto) Baso # (Auto) Abs Immat Gran (auto) Absolute Neuts (auto) Absolute Nucleated RBC 0.000 Nucleated RBC % (auto) 0.0 Sodium 143 Potassium 3.7 Chloride 109 H Carbon Dioxide 27 Anion Gap 11 L BUN 7 L Creatinine 0.86 Estim Creat Clear Calc 110.7 Estimated GFR > 60 Random Glucose 82 Calcium 8.4 Magnesium Urine Color YELLOW Urine Appearance CLEAR Urine pH 6.5 Ur Specific [place] 1.015 Urine Protein TRACE Urine Glucose (UA) NEG Urine Ketones NEG Urine Blood NEG Urine Nitrite NEG Ur Leukocyte Esterase NEG Quality Stroke Does the patient have a stroke diagnosis?: No VTE Prior VTE?: No VTE Risk Level:: Medical - moderate - high VTE Device Contraindication: N/A - Device Ordered VTE Drug Contraindication: N/A - Med Ordered
[2020-09-17 11:32] VITALS: BP 122/69; PULSE 53; RESP 20; TEMP 37.1; O2SAT 99
[2020-09-17 15:40] VITALS: BP 123/65; PULSE 67; RESP 18; TEMP 37.4; O2SAT 98
--- NOTE | 2020-09-17 15:55 | P.CONGS_ITS ---
History of Present Illness Consult details Consult date: 09/17/20 Reason for consult: abdominal pain Narrative: Very pleasant 44-year-old gentleman presented to the hospital for left lower quadrant and back pain. He was subsequently worked up by the emergency room and found to have a left renal cortical infarct. He was subsequently worked up. He now presents to us for vascular evaluation. Of note he is extremely healthy nonsmoker nondiabetic and exercises on a regular basis. He now presents to us for vascular evaluation. Review of Systems Review of Systems: Yes all other systems are reviewed and are negative Constitutional: Constitutional: Reports no additional constitutional complaints ENT: Reports Normal hearing present Cardiovascular: Cardiovascular: Denies chest pain, Denies chest pain at rest, Denies chest pain with activity and Denies pedal edema Respiratory: Respiratory: Denies cough Gastrointestinal: Gastrointestinal: Denies abdominal pain Musculoskeletal: Musculoskeletal: Denies abnormal gait, Denies muscle cramps and Denies radiating pain into limb Integumentary/Breasts: Skin/Breast: Denies skin ulcer and Denies wounds Neurologic: Reports Normal hearing present and Denies abnormal gait Psychiatric: Psychiatric: Reports no additional psychiatric complaints [facility] Family History Family history: reviewed and not pertinent (Reports mother had history of aneurysm) Social History Social History Household Members: Spouse and Children Household Members Other:: 4 Housing: Apartment Do you presently have visiting nurse or other home services: No Patient Tobacco Use Status: Former Tobacco user Quit Date: years ago Tobacco use type: Cigarette Patient Interested in Nicotine Replacement: No Use of substances other than those prescribed or required for medical reasons: No Currently Displaying Signs/Symptoms of Drug Intoxication Withdrawal: No Have you been hit, kicked, punched, or otherwise hurt by someone within the past year? If so, by whom?: No Advance Directives: No Advance Directives Information Provided: Yes Do you have thoughts of harming others: None Do you have a plan to hurt others: No Plan Recently lost weight without trying: No Eating poorly because of decreased appetite: No Nutrition Risks: No Nutritional Risk Poor oral hygiene: No service: No Current occupational status: employed Meds Allergies Allergy/AdvReac Type Severity Reaction Status Date / Time No Known Allergies Allergy Verified 09/15/20 17:59 Active Medications: Current Medications Generic Name Dose Route Start Last Admin Trade Name Freq PRN Reason Stop Dose Admin Acetaminophen 650 mg 09/15/20 21:52 09/16/20 17:13 Acetaminophen 325 Mg Tablet PO 650 mg Q6H PRN Administration Pain, Mild (Pain Scale 1-3) Enoxaparin Sodium 40 mg 09/15/20 22:00 09/16/20 20:31 Enoxaparin Sodium 40 Mg/0.4 Ml Syringe SUBCUT 40 mg Q24H ESTEFANIA Administration Hydromorphone HCl 0.5 mg 09/16/20 03:33 09/16/20 15:45 Hydromorphone Hcl 0.5 Mg/0.5 Ml Syringe IVPUSH 0.5 mg Q4H PRN Administration Breakthrough Pain Lactated Ringer's 1,000 mls @ 100 mls/hr 09/16/20 13:00 09/17/20 07:49 Lr IVCONT 100 mls/hr .Q10H ESTEFANIA Administration Magnesium Hydroxide 30 ml 09/15/20 21:52 Milk Of Magnesia 30 Ml Oral.Susp PO DAILY PRN Constipation Melatonin 6 mg 09/15/20 21:52 Melatonin 3 Mg Tablet PO BEDTIME PRN Insomnia Sodium Chloride 3 ml 09/16/20 00:00 09/17/20 14:32 0.9 % Sodium Chloride Flush 3 Ml Syringe IVFLUSH Not Given QSHIFT [facility] Physical Exam Vital Signs: Vital Signs: Last Vital Signs Temp 99.3 F 09/17/20 15:40 Pulse 67 09/17/20 15:40 Resp 18 09/17/20 15:40 BP 123/65 09/17/20 15:40 Pulse Ox 98 09/17/20 15:40 Body Mass Index 23.8 Const: General: cooperative, healthy appearing and comfortable Orientation/consciousness: oriented to person, oriented to place and oriented to time HENMT: Head: Yes normal to inspection Neck: Neck: Yes normal visual inspection Carotids: no bruits Chest: Chest palpation & inspection: normal inspection of the chest Resp: Effort & Inspection: normal respiratory effort and able to speak in complete sentences Auscultation: clear to auscultation bilaterally, no crackles, no rales, no rhonchi and no wheezes Cardio: Rate: regular rate Rhythm: regular rhythm Heart sounds: S1 normal heart sound present and S2 normal heart sound present Bruits: no carotid bruits Peripheral pulses: Peripheral pulses 2+ throughout GI: Inspection: Yes normal to inspection Skin: Wounds: no wounds Hair: normal Neuro: General: oriented to person, oriented to place and oriented to time Cranial nerves: Yes CN's II-XII intact bilaterally and Yes Normal hearing present Cognition (Neuro): normal cognition Motor exam (neuro): 5/5 motor strength present throughout Extrem: Other: venous exam: No significant superficial varicosities or spider telangiectasias, minimal edema General: No clubbing, No cyanosis and No edema Psych: Appearance: grossly normal Mental Status: mental status grossly normal Speech and movement: Normal speech and movement present Results Labs Result diagrams: 09/17/20 05:24 09/17/20 05:24 Labs: Abnormal lab results 09/17/20 09/17/20 Range/Units 05:24 05:24 RBC 3.99 L (4.60-5.80) X10*6/uL Hgb 13.1 L (14.0-18.0) g/dl Hct 36.9 L (42-52) % MPV 12.5 H (9.4-12.4) fL Chloride 109 H (96-108) mmol/L Anion Gap 11 L (12-20) BUN 7 L (9-16) mg/dL Short CBC 09/17/20 Range/Units 05:24 WBC 10.8 (4.8-10.8) X10*3/uL Hgb 13.1 L (14.0-18.0) g/dl Hct 36.9 L (42-52) % Plt Count 185 (160-400) X10*3/uL BMP 09/17/20 05:24 Sodium 143 Potassium 3.7 Chloride 109 H Carbon Dioxide 27 BUN 7 L Creatinine 0.86 Calcium 8.4 Urine 09/16/20 Range/Units Unknown Urine Color YELLOW Urine Appearance CLEAR Urine pH 6.5 (5.0-8.0) Ur Specific [place] 1.015 (1.005-1.025) Urine Protein TRACE (NEG-TRACE) MG/DL Urine Glucose (UA) NEG (NEG) MG/DL All other labs normal. Imaging Abdomen CT scan report/results: report reviewed and image reviewed US - kidney/bladder: report reviewed and image reviewed Additional studies: CT scan does demonstrate renal infarct. Ultrasound I did review images and written report along with work she which demonstrated no sig nificant stenosis. Assessment and Plan (1) Renal infarct: Status: Acute Unclear etiology and chronicity of this renal infarct. When examining the patient the patient only had a deep left lower quadrant pain on deep palpation only. All is pain appeared to have resolved. I did review all imaging does not appear to be a source of this discomfort. I had an opportunity to discuss this with the nephrology team as well. Would not anticoagulate or treat any further. Stable from my perspective for discharge. He will follow up with us on an as- needed basis. Thank you for allowing us to participate in this patient's care. Over 60 minutes was required for this patient's care including review of records, imaging review written report and images, discussion with Radiology, discussion with Nephrology, discussion with hospitalist team, and direct patient care. Procedures Date of Service Date of Service: 09/17/20
--- NOTE | 2020-09-17 16:15 | CONS_ITS ---
DATE OF SERVICE: 09/16/2020 REASON FOR CONSULTATION: Consult requested by the medical team for patient question of renal infarct. HISTORY OF PRESENT ILLNESS: The patient is a 44-year-old male with no significant past medical history, who presented to the hospital with chief complaint of left-sided lower abdominal pain. The patient's pain started yesterday and did not improve, came into the ER. He did not have any urinary symptoms like dysuria, urgency of urination, and frequent urination. He did not have any constipation or diarrhea. Denies any alcohol use. Denies taking any [id number] medication. There are no clotting disorders in the family. No shortness of breath. In the ER, the patient had workup for lower quadrant abdominal pain and he had a CT scan, which showed left-sided lower kidney lesion with a question of infarct. He is presently resting in the bed and is feeling better, but the pain is not completely gone. PAST MEDICAL HISTORY: Nonsignificant. PAST SURGICAL HISTORY: Nonsignificant. MEDICATIONS: None. ALLERGIES: THE PATIENT DOES NOT HAVE ANY KNOWN DRUG ALLERGIES. PHYSICAL EXAMINATION: GENERAL: The patient is resting in the bed, awake, alert, oriented x3. No significant distress. VITAL SIGNS: Blood pressure was 104/57, pulse 54, afebrile. HEENT: Shows pupils equal bilaterally and reactive to light. No jugular venous distention is noted. NECK: Supple. No thyromegaly is noted. CARDIOVASCULAR SYSTEM: S1, S2 without rub or murmur. RESPIRATORY SYSTEM: Air entry good bilaterally. No crepitation or rhonchi is noted. ABDOMEN: Soft, nontender. No guarding. No rigidity. Bowel sounds normal. EXTREMITIES: Showed no edema. LABORATORY DATA: Labs done today. WBC is 10.9, hemoglobin 13.4, hematocrit 38, platelets were 186. Sodium 140, potassium 3.7, chloride 107, CO2 of 27, BUN 7, creatinine 0.87, estimated GFR more than 60. Liver function tests were abnormal with total bilirubin of 1.9. Lipase was normal. Urinalysis did not show any blood, protein, or leukocytes. D-dimer level was normal at less than 200. IMPRESSION: 1. Young male with left lower quadrant abdominal pain with CT findings showing the patient has a segmental area of non-enhancement with question of infarct. 2. Though the patient has a CT finding, the clinical exam does not correlate with the CT findings. The pain for this patient in the left lower quadrant and I examined the patient, he did not have any CVA angle tenderness. Urine testing did not show any hematuria or pyuria. 3. I discussed with the medical team and I do not think he requires anticoagulation at this juncture, but I recommend doing a renal Doppler on this patient. I also recommended a full urinalysis with microscopy to look for RBCs in the urinalysis. I will continue to follow the patient closely. Thank you for allowing me to participate in the medical management of the patient. MD JESSICA Peng/CLARICE / [id number]
--- NOTE | 2021-07-05 11:39 | P.DS_ITS ---
DS: Providers Provider Date of Service: 09/17/20 Date of admission: 09/15/20 21:52 Primary care physician: None Physician Consults: 09/15/20 21:51 Consult to Nephrology Routine Consulting Provider: Francois Lema Reason for consultation: nephrology 09/16/20 12:37 Consult to Vascular Surgery Routine Consulting Provider: Tyrel Chinchilla Reason for consultation: renal infarct Has provider been notified: No DS: Diagnosis Discharge Diagnosis (1) Renal infarct: Status: Acute DS: Summary Hospital Course Hospital Course: date of service and discharge: 09/17/20 44-year-old male with no significant past medical history presented to the hospital with a chief complaint of left lower quadrant abdominal pain.? CT scan showed possible mild colitis and left renal infarct.? Admitted for further management. Hospital course: Patient came to the hospital because of left lower quadrant pain: Thought to be related to mild colitis patient- denies any nausea ,vomiting, diarrhea or abdominal pain orany other GI complaints: Seems to be improving, being treated conservatively without antibiotics. Further management outpatient as per PCP. Patient was also having suspicion of left renal infarct on abdominal CT subsequently was seen by vascular : Renal sono, heart echo was done seems to be fine: Discussed with the vascular and Nephro is less likely any infarct finding after reviewing renal sono. No further workup and intervention recommended at this point. Follow-up with vascular out patiently. Time Spent with Patient Time attestation: Total time spent providing and/or coordinating discharge services: Discharge coordination time: Greater than 30 minutes Quality: Safe Use of Opioids Does Pt have an Active Cancer Diagnosis on the Problem List?: No Quality: Stroke Does the patient have a stroke diagnosis?: No Physical Exam Vital Signs: Vital Signs: Last Vital Signs Temp 99.3 F 09/17/20 15:40 Pulse 67 09/17/20 15:40 Resp 18 09/17/20 15:40 BP 123/65 09/17/20 15:40 Pulse Ox 98 09/17/20 15:40 BMI result Body Mass Index 23.8 General? resting comfortably in no acute distress.? Neck supple no JVD. CVS? : rrr,s1s2 heard. Respiratory lungs : fair air entry, no wheeze, no rhonchi. Gastrointestinal abdomen soft, nt ,bowel sounds audible, no rebound, no guarding , no rigidity. Back no CVA tenderness Extremities no edema. Neuro nonfocal ,speech clear. Skin no rash DS: Data Additional Comments Additional comments: CT/CT abdomen pelvis w con IMPRESSION: ? 1. Left renal cortical findings suspicious for a renal infarct. 2. Collapsed distal colon limiting assessment. Correlate clinically concerning possibility of minor colitis. US/US renal doppler IMPRESSION: Normal renal ultrasound. ? On renal Doppler exam the velocities and resistive indexes are normal in both kidneys. There is no suggestion for renal artery stenosis. Discharge Plan Discharge Patient Disposition: Home, Self-Care Discharge Diagnosis: Left lower quadrant abdominal pain-possible colitis Referrals: Physician,None [Primary Care Provider] - 1 Week Discharge Orders: Discharge Order (Routine); Ordered 09/17/20 Ordered By: Dilia [place] Diet: advance to usual diet Activity on Discharge: As tolerated Stand Alone Forms: Patient Portal Discharge page Care Plan Goals: Patient came to the hospital because of left lower quadrant pain: Thought to be related to mild colitis patient- denies any nausea ,vomiting, diarrhea or abdominal pain orany other GI complaints: Seems to be improving, being treated conservatively without antibiotics. Further management outpatient as per PCP. Patient was also having suspicion of left renal infarct on abdominal CT s ubsequently was seen by vascular : Renal sono, heart echo was done seems to be fine: Discussed with the vascular and Nephro is less likely any infarct finding after reviewing renal sono. No further workup and intervention recommended at this point. Follow-up with vascular out patiently. Health Concerns: As above. Plan of Treatment: As above. Assessment: As above. Discharge Date/Time: 09/17/20 17:43
== END 2020-09-17 17:43 | disposition home or self-care (01) | DRG 700 ==
LOC: HO.ED 21:25 → HO.EDOVER 22:01 → HO.IMC 09-16 07:13
PROVIDERS: Hospitalist; Admitting Provider Hospitalist; Emergency Provider Emergency Medicine; Visit Provider Internal Medicine
DX: N28.0 Ischemia and infarction of kidney (principal); K52.9 Noninfective gastroenteritis and colitis, unspecified; Z20.822 Contact with and (suspected) exposure to COVID-19; Z87.891 Personal history of nicotine dependence
CPT/HCPCS: 36415; 74177; 76775; 80048; 80053; 80076; 81003; 83690; 83735; 85025; 85027; 85379; 87635; 93005; 93306; 93975; 99285; J1170; J1650; J1885; J2405; Q9957; Q9967

== ENCOUNTER 2024-12-27 12:03 | Emergency (ER) | payer SELFPAY ==
[2024-12-27 12:11] VITALS: BP 141/74; PULSE 70; RESP 16; TEMP 37.1; O2SAT 97; BMI 23.6
--- NOTE | 2024-12-27 12:13 | ED_ITS ---
HPI - General Adult General Chief complaint: Dental/Oral Stated complaint: L sided facial swelling Time Seen by Provider: 12/27/24 13:55 Source: patient Mode of arrival: ambulatory Limitations: no limitations History of Present Illness ED Provider: Sofia Harrison PA-C HPI narrative: Patient is a 49 year old assigned male at with a history of renal infarct presenting to the emergency department today with left sided facial swelling. Patient states that he recently broke his left upper tooth and he now has left sided facial swelling. Patient denies any other complaints at this time. Related Data Previous Rx's ?Medication ?Instructions ?Recorded chlorhexidine gluconate 0.12 % 15 ml buccal BID #118 m L 12/27/24 mouthwash (Peridex) naproxen 500 mg tablet 500 mg PO BID 7 days #14 tab s 12/27/24 penicillin V potassium 500 mg 500 mg PO BID 10 days #2 0 tabs 12/27/24 tablet Allergies Allergy/AdvReac Type Severity Reaction Status Date / Time No Known Allergies Allergy Verified 12/27/24 12:13 Review of Systems 2 Constitutional: Constitutional: Reports as per HPI Eyes: Eyes: Reports as per HPI ENT: Reports as per HPI Cardiovascular: Cardiovascular: Reports as per HPI Respiratory: Respiratory: Reports as per HPI Gastrointestinal: Gastrointestinal: Reports as per HPI Genitourinary: Genitourinary: Reports as per HPI Musculoskeletal: Musculoskeletal: Reports as per HPI Integumentary/Breasts: Skin/Breast: Reports as per HPI Neurologic: Reports as per HPI Psychiatric: Psychiatric: Reports as per HPI Endocrine: Endocrine: Reports as per HPI Hematologic/Lymphatic: Hematologic/Lymphatic: Reports as per HPI Allergic/Immunologic: Allergic/Immunologic: Reports as per HPI PMFSH Past Medical History Attestation statement: The following information was validated with the patient. Source: old records reviewed and nursing notes reviewed Social History Social History Household Members: Spouse and Children Household Members Other:: 4 Housing: Apartment Do you presently have visiting nurse or other home services: No Patient Tobacco Use Status: Former Tobacco user Tobacco use type: Cigarette Advance Directives: No Advance Directives Information Provided: Yes service: No Current occupational status: employed Physical Exam ED Vital Signs: Vital Signs - 24 hr 12/27/24 12:11 Temperature 98.8 F Pulse Rate 70 Respiratory Rate 16 Blood Pressure 141/74 H Pulse Oximetry 97 Oxygen Delivery Method Room Air BMI result Body Mass Index 23.6 Const General: cooperative, no acute distress, alert and awake Nutritional Appearance: well nourished Orientation/consciousness: patient oriented x3 HENMT Head: Yes normal to inspection and Yes atraumatic Ears: hearing grossly normal bilaterally and external ears normal General nose exam: Normal external nose present, no nasal discharge noted and no epistaxis Face and sinus: No abrasion, No laceration and Yes other (minimal left sided facial cheek swelling) Mouth: Normal oral and palatal mucosa present, no drooling and no muffled voice Teeth and gingiva: poor dentition Teeth image: 2 1. minimal amount of swelling - no fluctuance Eyes General: appearance normal, both eyes and all related structures Periorbital: periorbital findings normal Eyelids: Yes eyelids normal Conjunctivae: conjunctivae normal Pupils: Equal, round and reactive pupils present EOM: EOMs intact bilaterally Neck Neck: Yes normal visual inspection and Yes full ROM Resp Effort & Inspection: normal respiratory effort and able to speak in complete sentences Neuro General: patient oriented x3, moves all extremities and CN's II-XI intact bilaterally Cranial nerves: Yes Equal, round and reactive pupils present Cognition (Neuro): normal cognition Extrem General: Yes normal to inspection, Yes full ROM and Yes capillary refill normal Psych Appearance: grossly normal Mental Status: mental status grossly normal Affect: normal affect Attitude: cooperative Thought process: Normal thought process present Thought content: Normal thought content present Insight: Good insight present (Psych) Course Course Course Narrative: This is a Rapid Medical Examination (RME) performed by Rachel Zhou PA-C in triage. Full HPI, ROS, assessment and treatment plan per primary provider in the Main ED. Hx: 49 yo M here w/ left facial swelling on waking this morning. reports broken upper left tooth. has not followed with a dentist in some time. no fever/chills/pain. PE/vitals: noted swelling to L upper cheek and buccal mucosa, multiple dental caries. Plan: basic labs, anticipate d/c w/ abx. Medical Decision Making Medical Decision Making MDM Narrative: Patient is a 49 year old assigned male at with a history of renal infarct presenting to the emergency department today with left sided facial swelling. Patient's physical exam was as noted in the physical exam portion of this note and consistent with a left upper dental infection vs. developing abscess. There was no fluctuance or drainable area present. Patient's lab work ordered by the provider in triage was unremarkable. I explained my physical exam findings to the patient. I answered all questions asked by the patient. I stressed the importance of the patient taking his medication as directed (either prescribed or as the over the counter packaging recommends). I stressed the importance of the patient following up with his primary care provider and a dentist. I stressed the importance of the patient returning to the emergency department immediately if his symptoms were to worsen or if he were to develop any dizziness, shortness of breath, difficulty breathing, chest pain, blurry vision, loss of vision, nausea, vomiting, abdominal pain, fever, chills, back pain, or any other complaints. Patient verbalized agreement and understanding with this treatment plan and discharge. Differential Diagnosis Differential Diagnoses: The differential diagnosis associated with the presentation includes Left upper dental infection Left upper dental abscess Admission/Observation Consideration of admission/observation: Escalation of care including admission/observation considered Patient would have been admitted to the hospital had his work up had any findings where hospital admission was appropriate and his clinical presentation warranted hospital admission. Lab Data [facility] Lab Attestation statement: I reviewed the patient's lab results. My interpretation of these results are in the MDM Rationale portion of this note. 12/27/24 12:47 12/27/24 12:47 Labs: Lab Results 12/27/24 Range/Units 12:47 WBC 12.7 H (4.8-10.8) X10*3/uL RBC 4.92 (4.60-5.80) X10*6/uL Hgb 15.9 (14.0-18.0) g/dl Hct 45.0 (42.0-52.0) % MCV 91.5 (80.0-98.0) fL MCH 32.3 (27.0-33.0) pg MCHC 35.3 (31.0-36.0) g/dl RDW 11.8 (11.0-16.0) % Plt Count 234 (160-400) X10*3/uL MPV 10.7 (9.4-12.4) fL Immature Gran % (Auto) 0.5 H (0.0-0.4) % Neut % (Auto) 77.1 H (45-73) % Lymph % (Auto) 14.4 L (20-40) % Mora % (Auto) 5.6 (2-11) % Eos % (Auto) 2.0 (0-4) % Baso % (Auto) 0.4 (0-2) % Lymph # (Auto) 1.8 (1.2-4.9) X10*3/uL Mora # (Auto) 0.7 (0.1-1.2) X10*3/uL Eos # (Auto) 0.3 (0.0-0.4) X10*3/uL Baso # (Auto) 0.1 (0.0-0.2) X10*3/uL Abs Immat Gran (auto) 0.06 H (0.00-0.03) X10*3/uL Absolute Neuts (auto) 9.8 H (2.0-8.3) x10*3/uL Absolute Nucleated RBC 0.000 (0.0-0.012) X10*3/uL Nucleated RBC % (auto) 0.0 (0.0-0.2) /100WBC Sodium 144 (135-145) mmol/L Potassium 4.4 (3.3-5.1) mmol/L Chloride 110 H (96-108) mmol/L Carbon Dioxide 28 (22-29) mmol/L Anion Gap 10 L (12-20) BUN 12 (9-16) mg/dL Creatinine 0.89 (0.5-1.4) mg/dL Estim Creat Clear Calc 101.5 Estimated GFR > 60 Random Glucose 105 (60-115) mg/dL Calcium 9.5 D (8.4-10.2) mg/dL Magnesium 2.1 (1.6-2.6) mg/dL Total Bilirubin 1.9 H (0.0-1.0) mg/dL AST 21 (5-37) U/L ALT 26 (0-40) U/L Alkaline Phosphatase 70 (39-117) U/L C-Reactive Protein 0.60 H (< or = 0.50) mg/dL Total Protein 7.7 (6.5-8.0) g/dL Albumin 4.7 (3.5-5.0) g/dL Prescription Management I considered prescription management with: Antibiotic (patient prescribed an antibiotic for left upper dental infection vs. abscess) Discharge Plan Discharge Clinical Impression: Dental abscess, Dental infection Patient Disposition: Home, Self-Care Instructions: Dental Abscess (ED) Additional Instructions: Call or visit any of the clinics below to establish with a dentist: [facility] [address] [place] [address] OR [address] [place] [address] OR [address] [facility] [address] [place] [address] OR [address] [place] [address] OR [address] [facility] [address] [place] [address] [address] [facility] [address] [place] [address] [address] [facility] [address] [place] [address] [address] [facility] [address] [place] [address] [address] [facility] [address] [place] [address] [address] [place] [address] [address] [place] [address] [address] [facility] [address] [place] [address] [facility] [address] [place] [address] [facility] [address] [facility] [address] [place] [address] [facility] [address] [place] [address] [facility] [address] [place] [address] [facility] [address] [place] [address] [facility] [address] [facility], [address] [facility] [address] [place] [address] [address] [place] [address] [address] [place] [address] (One number for all locations) [facility] [address] [place] [address] [facility] [address] [place] [address] [facility] [address] [place] [address] IF you are prescribed home medications and/or you are taking over the counter medications at home - it is very important you continue to do so as prescribed / directed unless told otherwise. Follow up with a primary care provider. Return to the emergency department immediately if your symptoms worsen or if you develop any numbness, tingling, dizziness, shortness of breath, difficulty breathing, chest pain, blurry vision, loss of vision, nausea, vomiting, abdominal pain, fever, chills, back pain, or any other complaints. L Take your medication as prescribed and follow up with a dentist. If you do not have a primary care provider - call any of the below numbers to establish and follow up with a primary care provider. [facility] Primary Care ([place]) [phone] [address] [facility], [address] [facility] Primary Care ([address] [place]) [phone] [place] [address], [address] [facility], [address] [facility] Primary Care ([address] [place]) [phone] [place] [address], [address] [facility], [address] [facility] Primary Care ([place]) [phone] [place] [address], [address] [facility], [address] [facility] Family Medicine [phone] [place] [address], [address] Please see the information below about our Patient Portal. If you are not yet enrolled in the [facility] Patient Portal, you will receive an enrollment email invitation following your visit to any [facility] care setting. You may also self-enroll in the Patient Portal by visiting our website: [email or web address] The following information is required to access the Patient Portal: - Your [facility] Medical Record Number - Your personal home email address (must match what is in your electronic medical record, Registration staff can assist with this) - Name - Date of Capabilities of the Patient Portal: - Message some providers - View upcoming appointments - Access your health summary, medical history, and visit history - View current conditions and allergies - View procedure and lab results - View your medications, including guidelines, side effects, and precautions - Complete pre-appointment questionnaires requested by your provider - Ready summary reports of your office visits and procedures To access the Patient Portal Mobile [employer], follow these directions: - Search [place] in the [employer] Store or [employer] Store - Download the Chucho - Search for [facility] - Enter your login/password Prescriptions: New penicillin V potassium 500 mg tablet 500 mg PO BID 10 Days Qty: 20 0RF naproxen 500 mg tablet 500 mg PO BID 7 Days Qty: 14 0RF chlorhexidine gluconate [Peridex] 0.12 % mouthwash 15 ml buccal BID Qty: 118 0RF Stand Alone Forms: Work/School Release Discharge Date/Time: 12/27/24 14:23 Print Language: Persian
[2024-12-27 12:51] LABS: MANUAL DIFF FLAG NO
[2024-12-27 12:53] LABS: Hematocrit 45.0 % (42.0-52.0); Hemoglobin 15.9 g/dl (14.0-18.0); Imm Gran Abs Auto 0.06 X10*3/uL (0.00-0.03); Imm Gran Pct Auto 0.5 % (0.0-0.4); Lymphocytes Absolute Auto 1.8 X10*3/uL (1.2-4.9); Mean Corpuscular HGB Conc 35.3 g/dl (31.0-36.0); Mean Corpuscular Hemoglobin 32.3 pg (27.0-33.0); Mean Corpuscular Volume 91.5 fL (80.0-98.0); NRBC Abs Auto 0.000 X10*3/uL (0.0-0.012); NRBC Pct Auto 0.0 /100WBC (0.0-0.2); Platelet Count 234 X10*3/uL (160-400); Red Blood Count 4.92 X10*6/uL (4.60-5.80); White Blood Count 12.7 X10*3/uL (4.8-10.8)
[2024-12-27 13:07] LABS: Alanine Aminotransferase 26 U/L (0-40); Albumin Level 4.7 g/dL (3.5-5.0); Alkaline Phosphatase 70 U/L (39-117); Anion Gap 10 (12-20); Aspartate Amino Transferase 21 U/L (5-37); Blood Urea Nitrogen 12 mg/dL (9-16); Calcium 9.5 mg/dL (8.4-10.2); Carbon Dioxide 28 mmol/L (22-29); Chloride 110 mmol/L (96-108); Creatinine Clr Calc Pharmacy 101.5; Estimated Glomerular Filt Rate > 60; Magnesium 2.1 mg/dL (1.6-2.6); Potassium 4.4 mmol/L (3.3-5.1); Sodium 144 mmol/L (135-145); Total Protein 7.7 g/dL (6.5-8.0)
== END 2024-12-27 14:23 | disposition home or self-care (01) ==
PROVIDERS: Physician Assistant Medical; Emergency Provider Emergency Medicine
DX: K04.7 Periapical abscess without sinus (principal)
CPT/HCPCS: 36415; 80053; 83735; 85025; 86140; 99282; 99283